=== PATIENT | male | born 1955 | race Hispanic/Latino ===

== ENCOUNTER 2017-07-27 14:48 | Emergency (ER) | payer MEDICARE ==
--- NOTE | 2017-07-27 16:37 | Emergency Department Report ---
Chief Complaint: Fall Stated Complaint: FALL Time Seen by Provider: 07/27/17 16:23 - HPI History of Present Illness: 62-year-old male presents to the emergency department with a complaint of left-sided rib pain after he slipped in the shower and fell onto the left side of his thorax. He says "I think I broke some ribs." He called an ambulance via [facility]. He has not taken anything for her symptoms prior to presentation. - ROS Review of Systems: Positive for left-sided rib and/or chest pain. Negative for fever, nausea, vomiting, shortness of breath or diaphoresis - Exam Vital Signs: Vital Signs 07/27/17 14:53 Temperature 97.5 F L Pulse Rate 58 L Respiratory 16 Rate Blood Pressure 137/49 O2 Sat by Pulse 100 Oximetry Physical Exam: Patient is consistently wincing secondary to pain in the left-sided ribs. It is tender to palpation but no crepitus or obvious deformity. Heart and lung sounds are normal auscultation. MSE screening note: Focused history and physical exam performed. Due to findings the following was ordered: I have ordered a x-ray with a left-sided rib series with a chest view. ED Disposition for MSE Condition: Stable Referrals: PRIMARY CARE, [Primary Care Provider] - 3-5 Days
--- NOTE | 2017-07-27 17:47 | XRay Report ---
FINAL REPORT EXAM: XR RIBS UNI W PA CHEST 3+V LT HISTORY: fall, left rib pain TECHNIQUE: Left ribs four views PRIORS: None. FINDINGS: There is acute moderately displaced fracture of the left anterior lateral 9th rib. Corticated deformities of the left 3rd and 4th lateral ribs appear most consistent with remote healed fractures. No additional acute findings. There is no evidence for pneumothorax or pleural fluid collection. Cardiac and mediastinal contours are unremarkable. IMPRESSION: Acute left 9th rib fracture Remote healed fractures the left 3rd and 4th ribs
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
[2017-07-27] MEDS ORDERED: NORCO 5/325 PO ONE (19:57)
[2017-07-27 20:19] VITALS: BP 102/51
== END 2017-07-27 20:34 | disposition home or self-care (01) ==
LOC: ED 14:48
DX: S22.32XA Fracture of one rib, left side, initial encounter for closed fracture (principal); I10 Essential (primary) hypertension; W19.XXXA Unspecified fall, initial encounter; Y93.89 Activity, other specified; Y92.89 Other specified places as the place of occurrence of the external cause; Y99.8 Other external cause status
CPT/HCPCS: 99283

== ENCOUNTER 2019-02-06 17:00 | Emergency (ER) | payer MEDICARE ==
[2019-02-06 19:20] LABS: Basophils % (Auto) 0.8 % (0.0-1.8); Eosinophils # (Auto) 0.1 K/mm3 (0.0-0.4); Eosinophils % (Auto) 2.2 % (0.0-4.3); Hematocrit 40.8 % (35.5-45.6); Hemoglobin 13.9 gm/dl (11.8-15.2); Lymphocytes # (Auto) 1.7 K/mm3 (1.2-5.4); Lymphocytes % (Auto) 29.5 % (13.4-35.0); Mean Corpuscular HGB Conc 34 % (32-34); Mean Corpuscular Volume 91 fl (84-94); Monocytes # (Auto) 0.7 K/mm3 (0.0-0.8); Monocytes % (Auto) 12.7 % (0.0-7.3); Platelet Count 195 K/mm3 (140-440); Red Blood Count 4.47 M/mm3 (3.65-5.03); Red Cell Distribution Width 12.9 % (13.2-15.2)
[2019-02-06 19:44] LABS: Alanine Aminotransferase 17 units/L (7-56); Albumin 4.3 g/dL (3.9-5); BUN/Creatinine Ratio 14; Blood Urea Nitrogen 11 mg/dL (9-20); Calcium 9.3 mg/dL (8.4-10.2); Hemolysis Index 21
--- NOTE | 2019-02-06 20:29 | Event Note ---
ED Screening Note Date of service: 02/06/19 Time: 20:27 ED Screening Note: 63 y o male presents with right arm laceration from fall today against a fan This initial assessment/diagnostic orders/clinical plan/treatment(s) is/are subject to change based on patients health status, clinical progression and re- assessment by fellow clinical providers in the ED. Further treatment and workup at subsequent clinical providers discretion. Patient/guardian urged not to elope from the ED as their condition may be serious if not clinically assessed and managed. Initial orders include: acc eval lac repair
[2019-02-06] MEDS ORDERED: LIDOCAINE (1%) 10 MG/1 ML VIAL 20 ML MDV INFILTRATI ONE (23:07)
[2019-02-07] MEDS ORDERED: TETANUS,DIPH,PERTUSS(ACELL) VACCINE 0.5 ML SYRINGE IM ONE (00:17)
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
[2019-02-07 00:59] VITALS: BP 149/58
== END 2019-02-07 00:55 | disposition home or self-care (01) ==
LOC: ED 17:00
DX: S51.811A Laceration without foreign body of right forearm, initial encounter (principal); I10 Essential (primary) hypertension; Z79.899 Other long term (current) drug therapy; W26.8XXA Contact with other sharp object(s), not elsewhere classified, initial encounter; Y93.89 Activity, other specified; Y92.89 Other specified places as the place of occurrence of the external cause; Y99.8 Other external cause status
CPT/HCPCS: 36415; 80053; 85025; 90471; 90715

== ENCOUNTER 2019-06-04 14:24 | Emergency (ER) | payer MEDICARE ==
[2019-06-04] MEDS ORDERED: MORPHINE 4 MG/1 ML INJ IV ONE (14:50)
[2019-06-04] MEDS ORDERED: ONDANSETRON 4 MG/2 ML INJ IV ONE (14:50)
[2019-06-04] MEDS ORDERED: BUPIVACAINE/PF (0.5%) 5 MG/1 ML 30 ML VIAL INFILTRATI ONE (14:51)
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
--- NOTE | 2019-06-04 15:44 | XRay Report ---
RIGHT SHOULDER 3 VIEWS INDICATION: pain/fall. COMPARISON: None. IMPRESSION: An anterior inferior dislocation is identified. There are multiple bony fragments at the level of the shoulder joint which appear to be a chip fractures from the lateral humeral head/neck r egion. No obvious fracture of the glenoid. The clavicle is intact. The soft tissues are unremarkable . Signer Name: James Azevedo Jr, MD Signed: 06/04/2019 3:39 PM Workstation Name: [id number]
[2019-06-04] MEDS ORDERED: LORazepam 2 MG/ML VIAL IV ONE (17:22)
[2019-06-04] MEDS ORDERED: propofoL 200 MG/20 ML VIAL IV ONE (17:56)
--- NOTE | 2019-06-04 20:34 | XRay Report ---
RIGHT SHOULDER RADIOGRAPH ONE VIEW INDICATION / CLINICAL INFORMATION: s/p reduction COMPARISON: Right shoulder radiograph earlier same day FINDINGS: BONES / JOINT(S): Interval reduction of the previously seen right shoulder dislocation, which now joanna ears to be in anatomic alignment on single frontal radiograph. Several displaced fracture fragments a gain seen along the superolateral aspect of the humeral head. SOFT TISSUES: Overlying soft tissue swelling. ADDITIONAL FINDINGS: None. Signer Name: Milly Verde MD Signed: 06/04/2019 8:29 PM Workstation Name: [id number]
[2019-06-05 08:59] VITALS: BP 138/74
== END 2019-06-05 02:00 | disposition home or self-care (01) ==
LOC: ED 14:24
DX: S42.291A Other displaced fracture of upper end of right humerus, initial encounter for closed fracture (principal); S43.004A Unspecified dislocation of right shoulder joint, initial encounter; I10 Essential (primary) hypertension; Z79.899 Other long term (current) drug therapy; Z86.69 Personal history of other diseases of the nervous system and sense organs; Z98.890 Other specified postprocedural states; W18.39XA Other fall on same level, initial encounter; Y93.89 Activity, other specified; Y92.89 Other specified places as the place of occurrence of the external cause; Y99.8 Other external cause status
CPT/HCPCS: 24505; 73020; 73030; 96374; 96375; 99284; J2060; J2270; J2405; J2704